=== PATIENT | female | born 1955 | race Caucasian/White ===

== ENCOUNTER 2025-03-21 15:26 | Emergency (ER) | payer SELFPAY ==
[~2025-03-21] VITALS: Ht 167.6 cm; Wt 75.0 kg
[2025-03-21 15:33] VITALS: TEMP 98.7; O2SAT 99
[2025-03-21] MEDS: METHOCARBAMOL 500MG TABLET PO ONE (16:39)
[2025-03-21] MEDS: LIDOCAINE 5% PATCH TOP SCH (16:40)
[2025-03-21] MEDS: KETOROLAC 30MG/ML VIAL IM ONE (16:42)
[2025-03-21 17:20] VITALS: BP 155/69; PULSE 78; RESP 22; O2SAT 96
[2025-03-21] MEDS: MORPHINE SULFATE 4 MG/ML INJ (FOR IV/IM USE) IM ONE (17:32)
[2025-03-21 17:34] LABS: CLARITY URINE CLEAR (CLEAR); GLUCOSE URINE NEGATIVE (NEGATIVE); KETONES URINE NEGATIVE (NEGATIVE); LEUKOCYTE ESTERASE URINE 1+ (NEGATIVE); NITRITE URINE NEGATIVE (NEGATIVE); OCCULT BLOOD URINE NEGATIVE (NEGATIVE); PH URINE 7.0 (4.5-8.0); PROTEIN URINE NEGATIVE (NEGATIVE); SPECIFIC GRAVITY URINE 1.008 (1.005-1.030); UROBILINOGEN URINE 0.2 E.U./dL (0.2-1.0)
[2025-03-21] MEDS ORDERED: METH-653 MT (17:38)
[2025-03-21] MEDS ORDERED: IBUP-1455 MT (17:38)
[2025-03-21] MEDS ORDERED: LIDO700A30 TP (17:38)
[2025-03-21 18:38] LABS: COLOR URINE STRAW (YELLOW)
[2025-03-21 18:40] LABS: RBC URINE NONE SEEN /hpf (0-2); WBC URINE 0-2 /hpf (0-2)
[2025-03-21 18:41] LABS: BACTERIA URINE 2+; SQUAMOUS EPITHELIAL CELL URINE RARE /lpf (RARE/1+)
== END 2025-03-21 19:40 | disposition home or self-care (01) ==
LOC: ER 15:26
DX: M48.56XA Collapsed vertebra, not elsewhere classified, lumbar region, initial encounter for fracture (principal); M54.9 Dorsalgia, unspecified; K58.9 Irritable bowel syndrome, unspecified; Z88.0 Allergy status to penicillin; Z88.1 Allergy status to other antibiotic agents; Z88.5 Allergy status to narcotic agent
CPT/HCPCS: 99285; 72131; 81003; 96372; J1885; J2270